=== PATIENT | male | born 1965 | race Caucasian/White ===

== ENCOUNTER → 2018-01-31 | Outpatient (CLI) | payer OTHER ==
[2018-01-31 12:21] LABS: BASO % 0.4 %; BASO ABS # 0.02 K/uL (0-0.2); EOS % 1.5 %; EOS ABS # 0.07 K/uL (0-0.5); HEMOGLOBIN 15.2 g/dL (14.0-18.0); IG# 0.01 K/uL (0.00-0.02); LYMPH % 43.3 %; LYMPH ABS # 2.05 K/uL (1.2-3.4); MEAN CELL VOLUME 88.4 fL (80-100); MEAN CORPUSCULAR HEMOGLOBIN 29.9 pg (25-34); MEAN CORPUSCULAR HGB CONC 33.8 g/dl (32-36); MEAN PLATELET VOLUME 10.8 fL (7.4-10.4); MONO ABS # 0.33 K/uL (0.11-0.59); NEUT % 47.6 %; NEUT ABS # 2.25 K/uL (1.4-6.5); PLATELET COUNT 219 K/uL (130-400); RED CELL DISTRIBUTION WIDTH CV 12.6 % (11.5-14.5); RED CELL DISTRIBUTION WIDTH SD 40.7 fL (36.4-46.3); WHITE BLOOD COUNT 4.73 K/uL (4.8-10.8)
[2018-01-31 12:31] LABS: ALBUMIN 4.3 gm/dl (3.4-5.0); ALT/SGPT 43 U/L (12-78); AST/SGOT 21 U/L (15-37); BLOOD UREA NITROGEN 22 mg/dl (7-18); CALCIUM 9.4 mg/dl (8.5-10.1); CARBON DIOXIDE 29 mmol/L (21-32); CHOLESTEROL 151 mg/dl (0-200); CREATININE 0.98 mg/dl (0.60-1.40); GLUCOSE 87 mg/dl (70-99); POTASSIUM 3.6 mmol/L (3.5-5.1); SODIUM 139 mmol/L (136-145)
[2018-01-31 12:42] LABS: ALKALINE PHOSPHATASE 74 U/L (45-117); LDL CHOLESTEROL CALCULATED 59 mg/dl; TOTAL PROTEIN 7.8 gm/dl (6.4-8.2)
== END | disposition home or self-care (01) ==
LOC: C.LAB 10:26
PROVIDERS: ATTEND Family Medicine
DX: Z00.00 Encounter for general adult medical examination without abnormal findings (principal)

== ENCOUNTER → 2018-03-11 | Outpatient (CLI) | payer OTHER ==
[~2018-03-11] MED LIST: OMEP20CA9 PO
== END | disposition home or self-care (01) ==
LOC: C.CPL 11:08
PROVIDERS: ATTEND Surgery
DX: Z01.818 Encounter for other preprocedural examination (principal); K40.20 Bilateral inguinal hernia, without obstruction or gangrene, not specified as recurrent; I45.10 Unspecified right bundle-branch block

== ENCOUNTER → 2018-03-21 | Day surgery (SDC) | payer OTHER ==
[2018-03-13 12:11] VITALS: Ht 180.3 cm; Wt 86.4 kg
[~2018-03-21] VITALS: Ht 180.3 cm; Wt 86.4 kg
[~2018-03-21] MED LIST changes: +ATROPINE SULFATE 0.1 MG/ML 5ML SYR IV PRN; +BUPIVACAINE 0.5 % 5 MG/1 ML MPF 30ML VIAL ONE; +CEFAZOLIN 2000MG IV PUSH 15 ML IV SCH; +CEFAZOLIN SOD 1 GM VIAL ONE; +CEPH500C2 PO; +CHECK SCOPOLAMINE PATCH PLACEMENT SCH; +DEXAMETHASONE SOD INJ 4 MG/ML VIAL ONE; +EpHEDrine SULFATE INJ 50 MG/ML AMP IV PRN; +FENTANYL CITRATE INJ 50 MCG/1 ML 2 ML VIAL IV PRN; +FENTANYL CITRATE INJ 50 MCG/1 ML 2 ML VIAL ONE; +HYDR-5688 PO; +HYDROCODONE/ACETAMIN 5/325MG TAB PO PRN; +KETOROLAC TROMETHAMINE 30 MG/ML VIAL ONE; +LACTATED RINGER'S 1000ML 1,000 ML IV SCH; +LIDOCAINE HCL 1% 20 ML VIAL ONE; +LIDOCAINE HCL 2% 2 ML VIAL (20MG/ML) ONE; +MIDAZOLAM HCL 1 MG/ML 2ML VIAL ONE; +ONDANSETRON INJ 2 MG/ML 2 ML VIAL IV PRN; +ONDANSETRON INJ 2 MG/ML 2 ML VIAL ONE; +PROPOFOL IV EMULSION 10 MG/ML 20 ML VIAL IV ONE; +SCOPOLAMINE 1.5 MG TDSY TD ONE; +SCOPOLAMINE 1.5 MG TDSY TD SCH; +SODIUM CHLORIDE 0.9% 1000ML 1,000 ML IV SCH; +SODIUM CHLORIDE 0.9% INJ 10 ML VIAL ONE
--- NOTE | 2018-03-21 06:49 | History & Physical Bridge - [place] ---
H&P Re-Evaluation Bridge Note: I have examined the patient, reviewed the History & Physical and in the interval since the performance of the History & Physical I have noted the following changes of clinical significance: No changes noted
--- NOTE | 2018-03-21 06:54 | Discharge Instructions-SurgCtr ---
Discharge Instructions Date of Service Mar 21, 2018. Visit Reason for Visit: Bilateral Inguinal Hernia Discharge Discharge Diagnosis / Problem: bilateral inguinal hernias Discharge Goals Goal(s): Decrease discomfort, Improve function, Improve disease control Activity Recommendations Activity Limitations: as noted below Lifting Limitations: no more than 25 pounds (for 4 weeks) Exercise/Sports Limitations: until after follow-up appointment May Resume Sexual Activity: when tolerated Shower/Bathe: keep incision dry (may shower Sun 03/23) Driving or Machine Use: 4-5 days Anesthesia . Post Anesthesia Instructions: If you have had General Anesthesia or IV Sedation: * Do not drive today. * Resume driving when surgeon permits. * Do not make important decisions or sign legal documents today. * Call surgeon for: 1. Temperature elevations greater than 101 degrees F. 2. Uncontrollable pain. 3. Excessive bleeding. 4. Persistent nausea and vomiting. 5. Medication intolerance (nausea, vomiting or rash). * For nausea and vomiting use only clear liquids such as: tea, soda, bouillon until nausea subsides, then gradually increase diet as tolerated. * If you have any concerns or questions, call your surgeon's office. If physician is unavailable and it is an emergency, call 911 or go to the nearest emergency room. . Instructions / Follow-Up Instructions / Follow-Up SPECIAL CARE INSTRUCTIONS: * Cover incisions and change daily for comfort/drainage. * Leave steri strips in place Avoid constipation- may use Senokot S and Milk of magnesia twice daily as directed on the package * May use ibuprofen for pain as tolerated. * Expect some swelling and bruising. Call your doctor if: * Temperature above 101 degrees * Pain not relieved by pain medicine ordered * There is increased drainage or redness from any incision * You have any unanswered questions or concerns [phone]. FOLLOW UP VISIT: If not already scheduled, please call the office for a follow-up visit. for next week- some suture removal OFFICE PHONE NUMBER: Dr. Wong Office Diet Recommendations Home Diet: resume previous diet Pending Studies Studies pending at discharge: no Medical Emergencies . Who to Call and When: Medical Emergencies: If at any time you feel your situation is an emergency, please call 911 immediately. . Non-Emergent Contact Non-Emergency issues call your: Primary Care Provider, Surgeon . . "Provider Documentation" section prepared by Mark Wong. .
--- NOTE | 2018-03-21 08:27 | [facility] Operative Report ---
Operative Report Operative Date Mar 21, 2018. Pre-Operative Diagnosis Bilateral Inguinal Hernia Post-Operative Diagnosis Same Procedure(s) Performed bilateral inguinal hernia repair Surgeon Dr. Wong Washer Assembler Surgeon(s) Nathan Gonzales PA-C Estimated Blood Loss 10cc Findings bilateral direct defects- Rt>> Lt Drains None Anesthesia Type General Complication(s) none Disposition Recovery Room / PACU I attest to the content of the Intraoperative Record and any orders documented therein. Any exceptions are noted below.
--- NOTE | 2018-03-21 09:18 | OPERATIVE REPORT ---
DATE OF OPERATION: 03/21/2018 NAME OF OPERATION: Bilateral inguinal hernia repair. PREOPERATIVE DIAGNOSIS: Bilateral inguinal hernias. POSTOPERATIVE DIAGNOSIS: Same with direct defects. STAFF SURGEON: Dr. Wong. VITICULTURIST: Nathan Gonzales PA-C. ANESTHESIA: General LMA. PROCEDURE: The patient was brought in the operating room and placed on the operating room table in a supine position. His lower abdomen was prepped and draped in usual fashion. Right side was approached first. 0.5% plain Marcaine was used to anesthetize the skin and subcutaneous tissue. Incision was made parallel to the inguinal ligament on the right side, carrying dissection down identifying the external oblique fibers incising them along their length. Cord structures were mobilized. The patient had a broad-based large chronic thickened direct hernia sac which was dissected away from the cord structures and then reduced. The transversalis fascia and inguinal ligament were partially reapproximated medially using interrupted 2-0 Ethibond suture, then a mesh plug placed into the defect, secured to surrounding tissue using 2-0 Ethibond suture, then a large mesh patch placed into the floor of the canal around the cord structures, secured to surrounding tissue using 2-0 Ethibond suture. I was able to identify the ilioinguinal and iliohypogastric nerves. The site was irrigated with antibiotic solution. Then the external oblique fibers closed over the mesh around the cord structures using 2-0 Ethibond suture. The site was anesthetized with 0.5% plain Marcaine and then the subcutaneous tissue reapproximated using 2-0 plain catgut suture; then the skin reapproximated using 4-0 nylon suture and Steri-Strips. The left side was approached. 0.5% plain Marcaine was again used. Incision made parallel to the inguinal ligament, similar to the right side, carrying dissection down, opening the external oblique fibers along their length to the external ring, identifying a small direct hernia sac which was dissected away from the cord structures and reduced. Mesh plug was placed into the defect, secured using 2-0 Ethibond suture, then a large mesh patch placed into the floor of the canal around the cord structures and secured using 2-0 Ethibond suture. I was able to identify the ilioinguinal and iliohypogastric nerves. The external oblique fibers were closed over the mesh around the cord structures using 2-0 Ethibond suture, then the site anesthetized using 0.5% plain Marcaine. Subcutaneous tissue reapproximated using 2-0 plain catgut suture, then the skin reapproximated using 4-0 nylon suture and Steri-Strips. Dressings applied and the patient transferred to recovery room in stable condition. I attest to the content of the Intraoperative Record and any orders documented therein. Any exception s are noted below.
[2018-03-21 09:30] VITALS: TEMP 36.5
[2018-03-21 09:45] VITALS: BP 144/81; PULSE 69; O2SAT 99
--- NOTE | 2018-03-21 10:02 | Anesthesiology Progress Note ---
Anesthesia Post Op Note Date & Time Mar 21, 2018 at 10:01 Vital Signs Pain Intensity: 0.5 Vital Signs Past 12 Hours Date Time Temp Pulse Resp B/P (MAP) Pulse Ox O2 Delivery O2 Flow Rate FiO2 03/21/18 09:30 36.5 73 16 137/86 (103) 99 Room Air 03/21/18 09:23 71 15 03/21/18 09:23 71 15 03/21/18 09:23 72 15 98 03/21/18 09:23 72 15 98 03/21/18 09:21 122/74 03/21/18 09:21 122/74 03/21/18 09:20 36.9 71 13 122/74 99 Room Air 03/21/18 09:18 73 15 03/21/18 09:18 74 15 99 03/21/18 09:18 73 15 03/21/18 09:18 74 15 99 03/21/18 09:16 136/70 03/21/18 09:16 136/70 03/21/18 09:13 71 14 100 03/21/18 09:13 69 14 03/21/18 09:13 71 14 100 03/21/18 09:13 69 14 03/21/18 09:11 124/73 03/21/18 09:11 124/73 03/21/18 09:08 66 12 93 03/21/18 09:08 67 12 03/21/18 09:08 66 12 93 03/21/18 09:08 67 12 03/21/18 09:06 122/72 03/21/18 09:06 122/72 03/21/18 09:03 71 14 03/21/18 09:03 71 14 03/21/18 09:03 71 14 100 03/21/18 09:03 71 14 100 03/21/18 09:01 129/70 03/21/18 09:01 129/70 03/21/18 08:58 81 15 100 03/21/18 08:58 85 15 03/21/18 08:58 81 15 100 03/21/18 08:58 85 15 03/21/18 08:53 57 24 03/21/18 08:53 58 24 100 03/21/18 08:53 58 24 100 03/21/18 08:53 57 24 03/21/18 08:51 111/70 03/21/18 08:51 111/70 03/21/18 08:48 67 25 03/21/18 08:48 67 25 03/21/18 08:48 67 25 99 03/21/18 08:48 67 25 99 03/21/18 08:46 127/70 03/21/18 08:46 127/70 03/21/18 08:43 79 25 99 03/21/18 08:43 78 25 03/21/18 08:43 78 25 03/21/18 08:43 79 25 99 03/21/18 08:41 120/75 03/21/18 08:41 120/75 03/21/18 08:39 121/82 03/21/18 08:39 121/82 03/21/18 08:38 36.7 68 12 121/82 100 Mask 6 03/21/18 06:33 36.7 91 16 127/93 (104) 100 Room Air Notes Mental Status: alert / awake / arousable, participated in evaluation Pt Amnestic to Procedure: Yes Nausea / Vomiting: adequately controlled Pain: adequately controlled Airway Patency, RR, SpO2: stable & adequate BP & HR: stable & adequate Hydration State: stable & adequate Anesthetic Complications: no major complications apparent
== END | disposition home or self-care (01) ==
LOC: X.SURG 06:06
PROVIDERS: ATTEND Surgery
DX: K40.20 Bilateral inguinal hernia, without obstruction or gangrene, not specified as recurrent (principal); Z82.49 Family history of ischemic heart disease and other diseases of the circulatory system; Z83.3 Family history of diabetes mellitus; Z87.891 Personal history of nicotine dependence; K21.9 Gastro-esophageal reflux disease without esophagitis